=== PATIENT | male | born 1955 | race American Indian/Alaskan Native ===

== ENCOUNTER 2016-05-12 06:21 | Day surgery (SDC) | payer BC, OTHER ==
[~2016-05-12] VITALS: Ht 172.7 cm; Wt 96.7 kg
[2016-05-12] MEDS ORDERED: HEPARIN 1,000 UNITS/ML, 10ML ONE ×2 (06:45→06:51)
[2016-05-12] MEDS ORDERED: BUPIVACAINE/PF-EPI 0.5% 1:200K ONE (06:45)
[2016-05-12] MEDS ORDERED: THROMBIN 5,000 UNIT VIAL TP ONE (06:45)
[2016-05-12] MEDS ORDERED: PROTAMINE SULFATE 10 MG/ML, 5ML ONE ×2 (06:51→08:39)
[2016-05-12 07:00] VITALS: BP 153/76
[2016-05-12] MEDS ORDERED: MIDAZOLAM 1 MG/ML, 2ML ONE (08:20)
[2016-05-12] MEDS ORDERED: FENTANYL PF 100 MCG/2ML ONE ×3 (08:21→10:18)
[2016-05-12] MEDS ORDERED: PROPOFOL 10 MG/ML, 20ML ONE (08:39)
[2016-05-12] MEDS ORDERED: ONDANSETRON 2MG/ML, 2ML ONE (08:39)
[2016-05-12] MEDS ORDERED: CEFAZOLIN 1,000 MG ONE (08:39)
[2016-05-12] MEDS ORDERED: ROCURONIUM 10 MG/ML ONE (08:39)
[2016-05-12] MEDS ORDERED: PAPAVERINE 30 MG/ML, 2ML ONE (09:15)
[2016-05-12] MEDS ORDERED: FENTANYL PF 100 MCG/2ML IV PRN (09:30)
[2016-05-12] MEDS ORDERED: ONDANSETRON 2MG/ML, 2ML IVPush PRN (09:30)
[2016-05-12] MEDS ORDERED: ACETAMINOPHEN 325 MG TABLET PO PRN ×2 (09:30→12:00)
[2016-05-12] MEDS ORDERED: HYDROmorphone 1 MG/ML, 1ML IV PRN (09:30)
[2016-05-12] MEDS ORDERED: OXYcodone 5 MG/5 ML ORAL.SOL UDC PO PRN (09:30)
[2016-05-12] MEDS ORDERED: MEPERIDINE/PF 25MG/0.5ML IVPush PRN (09:30)
[2016-05-12] MEDS ORDERED: OXYcodone 5 MG/5 ML ORAL.SOL UDC ONE (10:52)
[2016-05-12 11:30] VITALS: BP 146/87
[2016-05-12] MEDS ORDERED: ONDANSETRON 2MG/ML, 2ML IV PRN (12:00)
[2016-05-12] MEDS ORDERED: morphine SULFATE 10 MG/ML, 1ML IV PRN (12:00)
[2016-05-12] MEDS ORDERED: HYDROcodone/APAP 5/325 TABLET PO PRN (12:00)
[2016-05-12] MEDS ORDERED: HYDR-3240 PO (12:12)
[2016-05-12] MEDS ORDERED: HYDR-883 PO (12:12)
[2016-05-12] MEDS ORDERED: FLU VACC QS2016-17 (36MOS+)UP/PF 0.5 ML IM-VACC ONE (12:30)
[2016-05-12] MEDS ORDERED: PNEUMOCOCCAL 23 VACCINE IM-VACC ONE (12:30)
[2016-05-12 13:00] VITALS: BP 152/88
[2016-05-12] MEDS ORDERED: SODIUM CHLORIDE FLUSH 10ML SYR IVF SCH (21:00)
== END 2016-05-12 13:40 | disposition home or self-care (01) ==
LOC: OUT 06:21 → 4NOR 06:22 → OUT 13:40
PROVIDERS: ATTEND Surgery Vascular Surgery
DX: I12.9 Hypertensive chronic kidney disease with stage 1 through stage 4 chronic kidney disease, or unspecified chronic kidney disease (principal); E11.22 Type 2 diabetes mellitus with diabetic chronic kidney disease; N18.4 Chronic kidney disease, stage 4 (severe); E78.5 Hyperlipidemia, unspecified; N40.0 Benign prostatic hyperplasia without lower urinary tract symptoms; Z23 Encounter for immunization
CPT/HCPCS: 36821; 82962; 90686; 90732; G0008; G0009; J0690; J1644; J2250; J2405; J2440; J2704; J2720; J3010

== ENCOUNTER 2016-11-13 12:29 | Day surgery (SDC) | payer BC, OTHER ==
[~2016-11-13] VITALS: Ht 172.7 cm; Wt 98.0 kg
[~2016-11-13 12:29] MED LIST: BUPIVACAINE/PF 0.5% ONE; EPINEPHRINE 1 MG/ML, 1ML ONE; HEPARIN 1,000 UNITS/ML, 10ML ONE; HYDR-3240 PO; HYDR-883 PO; LIDOCAINE-MPF 2% ,5ML ONE; PROTAMINE SULFATE 10 MG/ML, 5ML ONE; SODIUM BICARBONATE 4.2%, 5ML ONE; THROMBIN 20,000 UNIT VIAL TP ONE
[2016-11-13] MEDS ORDERED: LIDOCAINE 1%, 2ML ONE (12:52)
[2016-11-13] MEDS ORDERED: LACTATED RINGERS 1,000 ML IV SCH (12:53)
[2016-11-13] MEDS ORDERED: SODIUM CHLORIDE 0.9% 1,000 ML IV SCH (12:56)
[2016-11-13 12:59] VITALS: BP 176/96
[2016-11-13] MEDS ORDERED: LIDOCAINE 1%, 2ML SQ PRN (13:00)
[2016-11-13] MEDS ORDERED: LOVA40TA2 PO (13:08)
[2016-11-13] MEDS ORDERED: LINA5TAB PO (13:08)
[2016-11-13] MEDS ORDERED: LOSA50TA6 PO (13:08)
[2016-11-13] MEDS ORDERED: TAMS0.4C2 PO (13:08)
[2016-11-13] MEDS ORDERED: SODI650T PO (13:08)
[2016-11-13] MEDS ORDERED: ASPI-496 PO (13:08)
[2016-11-13] MEDS ORDERED: CALC0.25 PO (13:08)
[2016-11-13] MEDS ORDERED: FENTANYL PF 100 MCG/2ML ONE ×2 (13:23)
[2016-11-13] MEDS ORDERED: MIDAZOLAM 1 MG/ML, 2ML ONE (13:23)
[2016-11-13 13:29] LABS: HEMOGLOBIN 14.4 g/dL (13.7-18.0)
[2016-11-13] MEDS ORDERED: ACETAMINOPHEN 325 MG TABLET PO PRN (13:30)
[2016-11-13] MEDS ORDERED: OXYcodone 5 MG/5 ML ORAL.SOL UDC PO PRN (13:30)
[2016-11-13] MEDS ORDERED: ONDANSETRON 2MG/ML, 2ML IVPush PRN (13:30)
[2016-11-13] MEDS ORDERED: HYDROcodone/APAP 7.5-325MG/15ML UDC PO PRN (13:30)
[2016-11-13] MEDS ORDERED: FENTANYL PF 100 MCG/2ML IV PRN (13:30)
[2016-11-13] MEDS ORDERED: HYDROmorphone 1 MG/ML, 1ML IV PRN (13:30)
[2016-11-13 13:39] LABS: ASPARTATE AMINO TRANSFERASE 23 U/L (15-37); BLOOD UREA NITROGEN 50 mg/dL (7-18)
[2016-11-13] MEDS ORDERED: PROPOFOL 10 MG/ML, 20ML ONE (14:14)
[2016-11-13] MEDS ORDERED: VASOPRESSIN 20 UNIT/ML, 1ML ONE (14:14)
[2016-11-13] MEDS ORDERED: PHENYLEPHRINE 10 MG/ML ONE (14:14)
== END 2016-11-13 17:45 ==
LOC: OUT 12:29
PROVIDERS: ATTEND Surgery
DX: T82.590A Other mechanical complication of surgically created arteriovenous fistula, initial encounter (principal); E11.22 Type 2 diabetes mellitus with diabetic chronic kidney disease; I12.0 Hypertensive chronic kidney disease with stage 5 chronic kidney disease or end stage renal disease; E78.5 Hyperlipidemia, unspecified; N18.5 Chronic kidney disease, stage 5; N40.0 Benign prostatic hyperplasia without lower urinary tract symptoms; Y83.9 Surgical procedure, unspecified as the cause of abnormal reaction of the patient, or of later complication, without mention of misadventure at the time of the procedure; Y92.89 Other specified places as the place of occurrence of the external cause; Z90.49 Acquired absence of other specified parts of digestive tract; Z98.890 Other specified postprocedural states; Z91.041 Radiographic dye allergy status; Z79.82 Long term (current) use of aspirin
CPT/HCPCS: 36415; 36825; 37607; 80053; 82962; 85025; 93005; C1757; J0171; J1644; J2250; J2370; J2704; J3010; J3490; J7030; J2720